=== PATIENT | male | born 1995 | race African-American/Black ===

== ENCOUNTER 2020-11-26 10:15 | Emergency (ER) | payer MEDICAID ==
[~2020-11-26] VITALS: Ht 180.3 cm; Wt 68.0 kg
[2020-11-26 10:25] VITALS: BP 123/69
[2020-11-26] MEDS ORDERED: IBUPROFEN 600MG TABLET PO ONE (10:45)
[2020-11-26] MEDS ORDERED: CEFTRIAXONE SODIUM 500 MG/VIAL IM ONE (10:45)
[2020-11-26] MEDS ORDERED: LIDOCAINE HCL 1% 20ML VIAL (Pyxis) INJ INFIL ONE (10:45)
[2020-11-26 10:56] LABS: CLARITY URINE CLEAR (CLEAR); COLOR URINE YELLOW (YELLOW); KETONES URINE NEGATIVE (NEGATIVE); LEUKOCYTE ESTERASE URINE NEGATIVE (NEGATIVE); NITRITE URINE NEGATIVE (NEGATIVE); OCCULT BLOOD URINE NEGATIVE (NEGATIVE); PH URINE 5.5 (4.5-8.0); PROTEIN URINE NEGATIVE (NEGATIVE); SPECIFIC GRAVITY URINE 1.022 (1.005-1.030); UROBILINOGEN URINE 0.2 E.U./dL (0.2-1.0)
[2020-11-26] MEDS ORDERED: IBUP-2028 MT (12:01)
[2020-11-26] MEDS ORDERED: DOXY100C5 MT (12:02)
== END 2020-11-26 12:38 | disposition home or self-care (01) ==
LOC: ER 10:15
DX: N43.3 Hydrocele, unspecified (principal); A64 Unspecified sexually transmitted disease
CPT/HCPCS: 76870; 81003; 87491; 87591; 93976; 96372; 99284; J0696; J3490

== ENCOUNTER 2021-05-20 12:37 | Emergency (ER) | payer MEDICAID ==
[~2021-05-20] VITALS: Ht 180.3 cm; Wt 68.0 kg
[~2021-05-20 12:37] MED LIST: DOXY100C5 MT; IBUP-2028 MT
[2021-05-20 12:45] VITALS: BP 125/73
[2021-05-20 15:21] LABS: CLARITY URINE CLEAR (CLEAR); COLOR URINE YELLOW (YELLOW); KETONES URINE NEGATIVE (NEGATIVE); LEUKOCYTE ESTERASE URINE NEGATIVE (NEGATIVE); NITRITE URINE NEGATIVE (NEGATIVE); OCCULT BLOOD URINE NEGATIVE (NEGATIVE); PH URINE 7.5 (4.5-8.0); PROTEIN URINE NEGATIVE (NEGATIVE); SPECIFIC GRAVITY URINE 1.013 (1.005-1.030)
[2021-05-20] MEDS ORDERED: TOPUD MT (16:01)
== END 2021-05-20 16:22 | disposition home or self-care (01) ==
LOC: ER 12:37
DX: N50.811 Right testicular pain (principal)
CPT/HCPCS: 76870; 81003; 93976; 99284